=== PATIENT | female | born 1960 | race Caucasian/White ===

== ENCOUNTER 2019-09-01 13:54 | Emergency (ER) | payer OTHER ==
[~2019-09-01] VITALS: Ht 157.5 cm; Wt 74.8 kg
[~2019-09-01 13:54] MED LIST: ALBU90OI61 INH; ARIP20 PO; ARNUITY ELLIP100 MCG; ATOR40TA PO; Amphetamine Sal30 MG PO; FLUTICASONE-SA1 EAC4 INH; HYDR1TAB94 PO; OMEPRAZOLE20 MG PO; OXYC5 PO; PROZAC20 MG PO; Prinivil10 MG PO
[2019-09-01] MEDS ORDERED: IBUP600 PO (14:10)
[2019-09-01] MEDS ORDERED: Norco 5-325 Ta1 EACH PO (14:10)
== END 2019-09-01 14:24 | disposition home or self-care (01) ==
LOC: ER 13:54
DX: M70.21 Olecranon bursitis, right elbow (principal); J45.909 Unspecified asthma, uncomplicated; F17.210 Nicotine dependence, cigarettes, uncomplicated; Z79.51 Long term (current) use of inhaled steroids; Z79.899 Other long term (current) drug therapy; Z88.8 Allergy status to other drugs, medicaments and biological substances
CPT/HCPCS: 99283

== ENCOUNTER 2019-09-25 12:19 | Day surgery (SDC) | payer OTHER ==
[~2019-09-25] VITALS: Ht 157.5 cm; Wt 70.8 kg
[~2019-09-25 12:19] MED LIST changes: +IBUP600 PO; +Norco 5-325 Ta1 EACH PO
--- NOTE | 2019-09-25 15:39 | NUR ---
09/25/19 1539 Reba Gerber UPON ENTRY INTO STEPDOWN PATIENT RATED PAIN 4/10. BEFORE I TOOK HER I IV OUT SHE AGAIN RATED PAIN AT 4/10. SHE STATED IT WAS A DULL ACHE. SHE ASKED FOR AND RECEIVED CRACKERS TO EAT AND WAS DRINKING WATER. SHE REPEATEDLY SAID SHE WANTED TO GO HOME SOON POSSIBLE AND WAS "SURE I'LL BE FINE". I DID DISCHARGE THE PATIENT IN STABLE CONDITION AND WENT OVER AND SHE VERBALIZED UNDERSTANDING TO CALL IF PAIN GOT WORSE
== END 2019-09-25 15:36 | disposition home or self-care (01) ==
LOC: ORSCSDS 12:19
PROVIDERS: Student in an Organized Health Care Education/Training Program
PROC: 0DBM8ZX Excision of Descending Colon, Via Natural or Artificial Opening Endoscopic, Diagnostic (ICD-10-PCS; principal; 2019-09-25 13:15)
PROC: 0DBN8ZX Excision of Sigmoid Colon, Via Natural or Artificial Opening Endoscopic, Diagnostic (ICD-10-PCS; principal; 2019-09-25 13:15)
PROC: 0DBH8ZX Excision of Cecum, Via Natural or Artificial Opening Endoscopic, Diagnostic (ICD-10-PCS; principal; 2019-09-25 13:15)
DX: Z12.11 Encounter for screening for malignant neoplasm of colon (principal); K63.5 Polyp of colon; K57.30 Diverticulosis of large intestine without perforation or abscess without bleeding; Z86.010 Personal history of colon polyps; I10 Essential (primary) hypertension; E78.5 Hyperlipidemia, unspecified; J45.909 Unspecified asthma, uncomplicated; F90.9 Attention-deficit hyperactivity disorder, unspecified type; F43.10 Post-traumatic stress disorder, unspecified; Z79.899 Other long term (current) drug therapy; F17.210 Nicotine dependence, cigarettes, uncomplicated
CPT/HCPCS: 88305; J2405; J2704; J7120

== ENCOUNTER 2020-02-01 16:44 | Emergency (ER) | payer OTHER ==
[~2020-02-01] VITALS: Ht 157.5 cm; Wt 68.0 kg
[2020-02-01] MEDS ORDERED: Amphetamine Sal30 MG PO (16:55)
[2020-02-01] MEDS ORDERED: LISI20 PO (16:56)
[2020-02-01 17:25] LABS: BASOPHILS ABSOLUTE AUTO 0.07 K/mm3 (0.00-0.23); BASOPHILS PERCENT AUTO 0 % (0-2); EOSINOPHILS ABSOLUTE AUTO 0.12 K/mm3 (0.00-0.68); EOSINOPHILS PERCENT AUTO 1 % (0-6); Hematocrit 42.5 % (33.0-51.0); Hemoglobin 14.1 g/dL (11.5-16.0); IMMATURE GRAN ABSOLUTE AUTO 0.07 K/mm3 (0.00-0.10); IMMATURE GRAN PERCENT AUTO 0 % (0-1); LYMPHOCYTES ABSOLUTE AUTO 3.35 K/mm3 (0.84-5.20); LYMPHOCYTES PERCENT AUTO 20 % (21-46); MONOCYTES ABSOLUTE AUTO 0.96 K/mm3 (0.16-1.47); MONOCYTES PERCENT AUTO 6 % (4-13); Mean Corpuscular HGB 29.2 pg (26.0-34.0); Mean Corpuscular HGB Conc 33.2 g/dL (31.5-36.5); Mean Corpuscular Volume 88 fL (80-100); Mean Platelet Volume 8.8 fL (9.1-12.4); NEUTROPHILS ABSOLUTE AUTO 12.05 K/mm3 (1.96-9.15); NEUTROPHILS PERCENT AUTO 73 % (41-73); Platelet Count 403 K/mm3 (150-400); RDW Coefficient Variation 14.1 % (11.7-14.2); RDW Standard Deviation 45.1 fL (35.1-46.3); Red Blood Cell Count 4.83 M/mm3 (3.80-5.20); White Blood Cell Count 16.62 K/mm3 (4.00-11.30)
[2020-02-01 17:49] LABS: Alanine Aminotransfer (ALT/SGP 27 U/L (12-78); Albumin, Blood 3.7 g/dL (3.4-5.0); Albumin/Globulin Ratio 0.9 (0.8-1.8); Alk Phos 114 U/L (50-136); Anion Gap 6 mmol/L (6-16); Aspartate Aminotrans (AST/SGOT 11 U/L (12-37); Bilirubin, Total 0.6 mg/dL (0.1-1.0); Blood Urea Nitrogen 3 mg/dL (8-24); Bun/Creatinine Ratio 4.3 (12.0-20.0); CO2, Blood 29 mmol/L (21-32); Calcium, Blood 9.1 mg/dL (8.5-10.1); Chloride, Blood 100 mmol/L (98-108); Creatinine, Blood 0.69 mg/dL (0.40-1.00); Globulin, Blood 4.2 g/dL (2.2-4.0); Glomerular Filtration Rate >60 (60-); Glucose, Blood 95 mg/dL (70-99); Potassium, Blood 3.5 mmol/L (3.5-5.5); Sodium, Blood 135 mmol/L (136-145); Total Protein, Blood 7.9 g/dL (6.4-8.2)
[2020-02-01 18:35] LABS: Body Fluid Crystals NEG (NEGATIVE)
[2020-02-01 18:52] LABS: BODY FLUID RBC 0.004 M/mm3 (0-0); RBC Count, Synovial Fluid 4000 /mm3 (0-0)
[2020-02-01 19:16] LABS: WBC Count, Synovial Fluid 27950 /mm3 (0-180)
[2020-02-01] MEDS ORDERED: IBUP400 PO (19:24)
[2020-02-01] MEDS ORDERED: KEFLEX500 MG PO (19:24)
[2020-02-01 19:42] LABS: Lymphs, Synovial Fluid 5 % (0-15); Monocytes/Macrophages, Synovia 7 % (0-65); Neutrophils, Synovial Fluid 88 % (0-24)
[2020-02-01 19:43] LABS: Appearance, Synovial Fluid Cloudy (Clear); Color, Synovial Fluid Yellow (None-P Yel)
== END 2020-02-01 19:38 | disposition home or self-care (01) ==
LOC: ER 16:44
PROVIDERS: Emergency Medicine; Physician Assistant
DX: M70.22 Olecranon bursitis, left elbow (principal); F17.210 Nicotine dependence, cigarettes, uncomplicated; Z88.8 Allergy status to other drugs, medicaments and biological substances
CPT/HCPCS: 20605; 36415; 80053; 83605; 84550; 85025; 87070; 87075; 87077; 87186; 87205; 89051; 89060; 96372-59; 99283-25; J0690; J1885

== ENCOUNTER → 2020-02-07 | Outpatient (CLI) | payer OTHER ==
[~2020-02-07] MED LIST changes: +IBUP400 PO; +KEFLEX500 MG PO; +LISI20 PO
== END | disposition home or self-care (01) ==
LOC: LAB SHORT 17:27 → LAB 17:27
DX: M25.422 Effusion, left elbow (principal)
CPT/HCPCS: 87070; 87075; 87077; 87147; 87186; 87205

== ENCOUNTER 2020-03-27 16:25 | Emergency (ER) | payer OTHER ==
[~2020-03-27] VITALS: Ht 157.5 cm; Wt 71.7 kg
[~2020-03-27 16:25] MED LIST changes: -ALBU90OI61 INH
[2020-04-17] MEDS ORDERED: ALBU90OI61 INH (20:03)
[2020-04-17] MEDS ORDERED: Adderall 20 MG20 MG PO (20:04)
[2020-04-17] MEDS ORDERED: ATOR10 PO (20:05)
[2020-04-17] MEDS ORDERED: OMEP20ER PO ×2 (20:05→23:16)
[2020-04-17] MEDS ORDERED: FLUT.05NI (20:06)
[2020-04-17] MEDS ORDERED: ARIP10 PO (20:07)
[2020-04-17] MEDS ORDERED: Percocet 5-3251 EACH PO ×2 (20:08→23:16)
[2020-04-17] MEDS ORDERED: ALBU2.5V5 NEB (20:09)
[2020-04-17] MEDS ORDERED: Prednisone20 MG PO (23:16)
[2020-04-26] MEDS ORDERED: Norco 5-325 Ta1 EACH PO (11:54)
[2020-04-26] MEDS ORDERED: BENZ100A PO (11:56)
== END 2020-03-27 18:16 | disposition home or self-care (01) ==
LOC: ER 16:25
DX: J02.9 Acute pharyngitis, unspecified (principal); J04.0 Acute laryngitis; Z88.8 Allergy status to other drugs, medicaments and biological substances; Z79.899 Other long term (current) drug therapy; I10 Essential (primary) hypertension; E78.5 Hyperlipidemia, unspecified; F17.210 Nicotine dependence, cigarettes, uncomplicated; Z20.828 Contact with and (suspected) exposure to other viral communicable diseases
CPT/HCPCS: 36415; 86308; 87081; 87430; 99283; J1100; U0002